=== PATIENT | female | born 1960 | race Asian ===

== ENCOUNTER 2024-10-13 08:45 | Emergency (ER) | payer MEDICAID, OTHER ==
[~2024-10-13] VITALS: Ht 154.9 cm; Wt 54.5 kg
[~2024-10-13 08:45] MED LIST: AMOX-457 PO; ATOR10TA PO; BISA10SU11 PR; DOCU-385 PO; INSU100I26 SQ; LOSA-381 PO; MAGN400T57 PO; METF-1211 PO; OMEP-148 PO
[2024-10-13 08:48] VITALS: BP 147/66; PULSE 82; RESP 18; TEMP 98.2; O2SAT 99
[2024-10-13] MEDS: ACETAMINOPHEN 325 MG TABLET PO ONE (09:32)
[2024-10-13 10:12] LABS: GLUCOMETER DEV NAME(LOC) ERT.7; GLUCOSE,POINT OF CARE 138 MG/DL (70-110)
[2024-10-13] MEDS ORDERED: ACET-2247 PO (10:17)
== END 2024-10-13 11:05 | disposition home or self-care (01) ==
LOC: EMS 08:47
DX: S00.83XA Contusion of other part of head, initial encounter (principal); E11.9 Type 2 diabetes mellitus without complications; I10 Essential (primary) hypertension; E78.00 Pure hypercholesterolemia, unspecified; Z79.899 Other long term (current) drug therapy; W01.0XXA Fall on same level from slipping, tripping and stumbling without subsequent striking against object, initial encounter; Y93.89 Activity, other specified; Y92.89 Other specified places as the place of occurrence of the external cause; Y99.8 Other external cause status
CPT/HCPCS: 70450; 70486; 72125; 82962; 99284